=== PATIENT | female | born 1965 | race Caucasian/White ===

== ENCOUNTER 2017-05-22 14:00 | Emergency (ER) | payer OTHER ==
[2017-05-22 14:07] VITALS: BP 126/76; PULSE 74; TEMP 98.3; BMI 26.6
[2017-05-22] MEDS ORDERED: SODIUM CHLORIDE 1,000 ML IV STA (14:48)
[2017-05-22] MEDS ORDERED: MECLIZINE HCL 25 MG TABLET (FP) PO ONE (14:48)
--- NOTE | 2017-05-22 14:54 | PDOC ---
History of Present Illness - General Chief Complaint: Lightheaded Stated Complaint: DIZZY/BLURRED VISION Time Seen by Provider: 05/22/17 14:19 History Source: Patient - History of Present Illness Timing/Duration: other Severity: severe Associated Symptoms: reports: nausea/vomiting. denies: chest pain, fever/chills , headaches, shortness of breath, syncope, weakness Past History - Past Medical History Allergies/Adverse Reactions: Allergies Allergy/AdvReac Type Severity Reaction Status Date / Time No Known Allergies Allergy Verified 05/22/17 14:02 Home Medications: Ambulatory Orders Meclizine HCl [Antivert -] 25 mg PO TID #21 tablet 05/22/17 Metoclopramide HCl [Reglan] 10 mg GT Q8H #12 tablet 05/22/17 - Psycho/Social/Smoking Cessation Hx Anxiety: No Suicidal Ideation: No Smoking Status: No Smoking History: Never smoked Number of Cigarettes Smoked Daily: 0 Hx Alcohol Use: No Drug/Substance Use Hx: No Substance Use Type: None Review of Systems - Review of Systems Constitutional: No: Chills, Fever HEENTM: No: Blurred Vision Respiratory: No: Cough, Shortness of Breath Cardiac (ROS): No: Chest Pain, Lightheadedness, Palpitations ABD/GI: Yes: Nausea, Vomiting. No: Constipated, Diarrhea, Abdominal cramping Neurological: Yes: Dizziness. No: Headache, Weakness *Physical Exam - Vital Signs Last Vital Signs Temp Pulse Resp BP Pulse Ox 98.3 F 74 20 126/76 100 05/22/17 14:02 05/22/17 14:02 05/22/17 14:02 05/22/17 14:02 05/22/17 14:02 - Physical Exam General Appearance: Yes: Appropriately Dressed. No: Apparent Distress HEENT: positive: Normal Voice Neck: positive: Supple Respiratory/Chest: positive: Lungs Clear, Normal Breath Sounds. negative: Respiratory Distress Cardiovascular: positive: Regular Rate, S1, S2 Gastrointestinal/Abdominal: positive: Soft. negative: Tender Extremity: positive: Normal Inspection Integumentary: positive: Dry, Warm Neurologic: positive: Fully Oriented, Alert, Normal Mood/Affect, Motor Strength 5/5, Finger to Nose (no nystagmus, nl finger to nose, no drift, Rebecca intact, no ataxia). negative: Facial Droop ED Treatment Course - LABORATORY CBC & Chemistry Diagram: 05/22/17 15:25 05/22/17 15:25 - RADIOLOGY Radiology Studies Ordered: Category Date Time Status HEAD CT WITHOUT CONTRAST [CT] Stat CT Scan 05/22/17 14:47 Ordered CHEST X-RAY PORTABLE* [RAD] Stat Radiology 05/22/17 14:24 Ordered Medical Decision Making - Medical Decision Making 05/22/17 14:48 51-year-old female, history of arthritis, here with vertigo. Patient reports that about 2 AM today she woke up to go to the bathroom and experienced sensation of the room spinning. Since then, every time she gets up from a supine position the room spins. States symptoms improved at rest. Also complaining of multiple episodes of nausea, vomiting. No headache, visual changes, slurred speech or focal weakness. Patient denies chest pain or shortness of breath. No recent URI symptoms and no ear pain or tinnitus. Patient states she had similar episode 2 months ago that lasted for several hours, but did not go to ER then. See exam Positional vertigo, recurrent Possibly peripheral No recent URI sxs Stable w/ no focal deficits or cerebellar findings -ekg/labs/CT head -IVF/meclizine -reassess 05/22/17 14:52 05/22/17 17:[address] head unremarkable. Pt reports feeling significantly better with meds and feels safe going home. Will dc with referral to neurology 05/22/17 17:23 *DC/Admit/Observation/Transfer Diagnosis at time of Disposition: Vertigo - Discharge Dispostion Disposition: HOME Condition at time of disposition: Improved - Prescriptions Prescriptions: Meclizine HCl [Antivert -] 25 mg PO TID #21 tablet Metoclopramide HCl [Reglan] 10 mg GT Q8H #12 tablet - Referrals Referrals: Miko Arias MD [Primary Care Provider] - Ty Mcginnis MD [Staff Physician] - - Patient Instructions Printed Discharge Instructions: Benign Paroxysmal Positional Vertigo Additional Instructions: Your blood work and CAT scan were normal. Take medications as needed and as directed. Follow-up with Dr. Mcginnis of neurology in 1 to 2 weeks Print Language: SCOTTISH
[2017-05-22] MEDS ORDERED: MECLIZINE HCL 25 MG TABLET (FP) ONE (15:16)
[2017-05-22 15:28] LABS: MCH 29.6 pg (25.7-33.7); MCHC 33.8 g/dl (32.0-36.0); MEAN CELL VOLUME 87.4 fl (80-96); MEAN PLT VOLUME 9.6 fl (7.5-11.1); NEUTROPHILS 79.4 % (42.8-82.8); PLATELET COUNT 235 K/MM3 (134-434); RDW 13.5 % (11.6-15.6); WHITE BLOOD COUNT 8.9 K/mm3 (4.0-10.0)
[2017-05-22 15:52] LABS: ALBUMIN 4.3 g/dl (3.4-5.0); ANION GAP 10 (8-16); BILIRUBIN,TOTAL 0.5 mg/dL (0.2-1.0); CALCIUM 9.3 mg/dL (8.5-10.1); CO2 27 mmol/L (21-32); CREATININE 0.6 mg/dL (0.55-1.02); GLUCOSE,RANDOM 104 mg/dL (74-106); SGOT/AST 18 U/L (15-37); SGPT/ALT 26 U/L (12-78); TOT PROT 8.5 g/dl (6.4-8.2)
[2017-05-22 15:55] LABS: ALK PHOS 82 U/L (45-117); CPK 108 IU/L (26-192); TROPONIN I < 0.02 ng/ml (0.00-0.05)
[2017-05-22] MEDS ORDERED: diazePAM 5 MG TABLET PO ONE (16:00)
[2017-05-22] MEDS ORDERED: METOCLOPRAMIDE HCL INJECTION 10 MG/2 ML VIAL IVPB ONE (16:01)
[2017-05-22] MEDS ORDERED: METOCLOPRAMIDE HCL INJECTION 10 MG/2 ML VIAL ONE (16:06)
[2017-05-22] MEDS ORDERED: diazePAM 5 MG TABLET ONE (16:07)
[2017-05-22 16:47] LABS: URINE APPEARANCE CLEAR; URINE BILIRUBIN NEGATIVE (NEGATIVE); URINE BLOOD NEGATIVE (NEGATIVE); URINE COLOR LTYELLOW; URINE GLUCOSE (UA) NEGATIVE (NEGATIVE); URINE KETONE TRACE (NEGATIVE); URINE LEUK ESTERASE TRACE (NEGATIVE); URINE NITRITE NEGATIVE (NEGATIVE); URINE PROTEIN NEGATIVE (NEGATIVE); URINE UROBILINOGEN NEGATIVE mg/dL (0.2-1.0)
[2017-05-22 17:02] LABS: URINE BACTERIA RARE /hpf (NONE SEEN); URINE MUCUS RARE; URINE RBC 1 /hpf (0-3); URINE WBC 8 /hpf (3-5)
--- NOTE | 2017-05-23 13:28 | EKG ---
Test Reason : Blood Pressure : / mmHG Vent. Rate : 085 BPM Atrial Rate : 085 BPM P-R Int : 144 ms QRS Dur : 076 ms QT Int : 418 ms P-R-T Axes : 063 -16 043 degrees QTc Int : 497 ms NORMAL SINUS RHYTHM POSSIBLE LEFT ATRIAL ENLARGEMENT PROLONGED QT ABNORMAL ECG WHEN COMPARED WITH ECG OF 27-JAN-2011 17:37, QT HAS LENGTHENED CLINICAL CORRELATION IS RECOMMENDED Confirmed by MAGDALENA ANDERSON, MICHELLE ([id number]) on 05/23/2017 1:27:29 PM Referred By: Confirmed By:MICHELLE NICHOLS MD
== END 2017-05-22 17:56 | disposition home or self-care (01) ==
LOC: JER 14:00
PROC: 3E033GC Introduction of Other Therapeutic Substance into Peripheral Vein, Percutaneous Approach (ICD-10-PCS; principal; 2017-05-22)
PROC: 3E0337Z Introduction of Electrolytic and Water Balance Substance into Peripheral Vein, Percutaneous Approach (ICD-10-PCS; 2017-05-22)
DX: R42 Dizziness and giddiness (principal)
CPT/HCPCS: 36415; 70450-TC; 71010-TC; 80053; 81003; 81015; 84484; 85025; 93005; 93010; 99283-25